=== PATIENT | female | born 1945 | race Caucasian/White ===

== ENCOUNTER 2021-05-19 09:42 | Observation (INO) | payer MEDICARE, SELFPAY ==
[2021-05-19] VITALS (8 sets, daily range): BP systolic 123–175; BP diastolic 56–93; PULSE 73–101; RESP 12–18; TEMP 36.2–36.8; O2SAT 94–100; BMI 19.8; BMI 19.3
--- NOTE | 2021-05-19 09:53 | EKG12_ITS ---
Test Reason : CP/DIZZINESS Blood Pressure : / mmHG Vent. Rate : 086 BPM Atrial Rate : 086 BPM P-R Int : 162 ms QRS Dur : 074 ms QT Int : 364 ms P-R-T Axes : 075 029 072 degrees QTc Int : 435 ms Sinus rhythm with occasional Premature ventricular complexes Otherwise normal ECG Confirmed by ML GARCIA, KELLIE ([id number]), technical writer and editor VAUGHN CARCAMO ([id number]) on 05/23/2021 7:51:26 AM Referred By: /BB Confirmed By:KELLIE BULL MD
--- NOTE | 2021-05-19 09:53 | RAD_ITS ---
STUDY: X-RAY CHEST REASON FOR EXAM: Female, 75 years old. Chest pain TECHNIQUE: Single AP portable view of the chest. COMPARISON: None. FINDINGS: EKG electrodes are seen. There is hyperinflation of the lungs consistent with chronic obstructive lung disease (COPD). Increased bronchovascular markings in both lungs suggestive of emphysematous change. Scattered calcified granulomas. There is no demonstrated pleural abnormality. Normal size heart. Normal mediastinum and adrienne. Normal visualized pulmonary arteries. There is atherosclerotic calcification of the aortic arch with tortuosity. There are diffuse degenerative changes of the visualized thoracic spine. Normal visualized ribs, clavicles, and shoulders. There is no demonstrated abnormality of the visualized soft tissue structures of the upper abdomen. RAD/Chest 1 View (Portable) IMPRESSION: Hyperinflation. Emphysematous changes. Electronically Signed: Raymond Parisi MD at 10:50 EDT , Service support ,
--- NOTE | 2021-05-19 10:01 | EX.ED.DYSGE1 ---
HPI History of Present Illness Chief Complaint: Dizziness Informant: patient Narrative Narrative: 75-year-old female presenting with dizziness and chest pain. Patient states she has been having intermittent exertional chest pain which has been ongoing for the past several days. She is scheduled for stress test on Saturday. This morning she had a near syncopal episode. She denies vertigo. Denies headache. She complains of mild shortness of breath. She is vaccinated for Covid. She denies PE/DVT risk factors. Prior similar symptoms: No Recent Illness/Hospitalization: No PFSH [facility] Medical History (Updated 05/19/21 @ 10:[address] Latonia Guidry MD) Anxiety Depression Kidney cysts Home Medications aspirin [Baby Aspirin] 81 mg PO DAILY 05/19/21 [History Last Taken Unknown] sertraline 25 mg PO DAILY 05/19/21 [History Last Taken Unknown] Allergy/AdvReac Type Severity Reaction Status Date / Time No Known Allergies Allergy Verified 05/19/21 09:44 Social History Smoking Status: Former smoker ROS ROS ED Constitutional Constitutional ED: Denies fever(s) Eyes Eyes: Denies change in vision ENT ENT ED: Denies rhinorrhea or sore throat Cardiovascular Cardiovascular: Reports chest pain; Denies palpitations Respiratory/Chest Respiratory/Chest: Reports dyspnea; Denies cough Gastrointestinal Gastrointestinal: Denies abdominal pain, diarrhea, nausea or vomiting Genitourinary Genitourinary ED: Denies dysuria Musculoskeletal Musculoskeletal: Denies myalgias Integumentary Denies rash Neurologic Neurologic: Denies headache(s) Psychiatric Psychiatric: Denies suicidal thoughts EXAM Physical Exam Const Vital Signs: 05/19/21 09:44 05/19/21 09:59 05/19/21 10:02 Temperature 97.1 F L Temperature Source Temporal Pulse Rate 83 Respiratory Rate 14 Respiratory Effort Normal Non-Labored Blood Pressure 175/68 H Blood Pressure Mean 103 Pulse Ox 100 Oxygen Delivery Method Room Air Room Air Positive well nourished and well developed General Appearance ED: well developed HEENT Reports normocephalic and head/scalp atraumatic Eyes PERRL and EOMs intact bilaterally Neck supple General: Negative for tenderness Chest Wall inspection of chest normal Resp normal respiratory effort and clear to auscultation bilaterally Cardio regular rate and regular rhythm GI non-tender and non-distended Palpation: soft; Negative for guarding or rebound tenderness present no CVA tenderness Extremity normal to inspection Neuro oriented x3 Sensorium / Orientation: alert Psych mental status grossly normal MDM MDM MDM Narrative Medical decision making narrative: Patient was given aspirin, IV fluids. CBC, chemistries unremarkable other than creatinine 1.37. Troponin is negative. Chest x-ray read by myself and radiology shows hyperinflation, no acute process. Heart score is 4. She is supposed to have a stress test on Saturday but is uncomfortable waiting until that time with her worsening symptoms. Discussed with the hospitalist for admission. Lab Data Attestation: I reviewed the patient's lab results. Labs: Laboratory Results - last 24 hr 05/19/21 05/19/21 10:00 10:00 WBC 5.6 RBC 4.65 Hgb 13.3 Hct 40.5 MCV 87.1 MCH 28.6 MCHC 32.8 RDW Std Deviation 44.9 H RDW Coeff of Susan 14.0 Plt Count 255 MPV 11.4 Immature Gran % (Auto) 0.200 Neut % (Auto) 57.9 Lymph % (Auto) 33.3 Coffee % (Auto) 6.8 Eos % (Auto) 0.9 Baso % (Auto) 0.9 Absolute Neuts (auto) 3.3 Absolute Lymphs (auto) 1.87 Nucleated RBC % 0 Sodium 138 Potassium 4.2 Chloride 104 Carbon Dioxide 28.0 Anion Gap 6 BUN 22 H Creatinine 1.37 H Estim Creat Clear Calc 31.27 Est GFR (MDRD) Af Amer 48 L Est GFR (MDRD) Non-Af 40 L BUN/Creatinine Ratio 16.1 Glucose 97 Calcium 9.1 Troponin I High Sens 10 Radiography Chest X-Ray - ED: 1 View, Read by ED Physician and Read by Radiologist Diagnostic Testing: Clinical Impression(s) from Imaging Studies Chest X-Ray 05/19/21 09:53 IMPRESSION: Hyperinflation. Emphysematous changes. Electronically Signed: Raymond Parisi MD at 10:50 EDT , Service support , EKG Initial EKG: Attestation: I personally reviewed and interpreted this EKG as follows: Interpretation: Sinus Rhythm and No Acute Injury Pattern Comments: PVCs Discharge Plan Triage Chief Complaint: Dizziness ED Provider: Latonia Guidry Dx/Rx/DC Orders Clinical Impression: Chest pain, Near syncope Prescriptions: No Action sertraline 25 mg tablet 25 mg PO DAILY RF: 0 aspirin [Baby Aspirin] 81 mg Tablet,Chewable 81 mg PO DAILY RF: 0 Primary Care Provider: Padmini Chappell Referrals: Padmini Chappell PA [Primary Care Provider] - Disposition Disposition: Acute Care Hospital [facility]
[2021-05-19 10:09] LABS: Absolute Lymphocyte Count 1.87 X10^3/uL (0.83-4.51); Absolute Neutrophil Count 3.3 X10^3/uL (2.0-7.7); Basophil# 0.05 X10^3/uL; Basophil% 0.9 % (0-1); Eosinophil# 0.05 X10^3/uL; Eosinophils% 0.9 % (0-5); Hematocrit 40.5 % (37-47); Hemoglobin 13.3 g/dL (12.0-15.0); Lymphocyte # 1.87 X10^3/ul (0.83-4.51); Lymphocyte % 33.3 % (19-41); Mean Corp Hgb Conc 32.8 g/dL (32-36); Mean Corpuscular Hgb 28.6 pg (27.0-32.0); Mean Corpuscular Volume 87.1 fL (81-99); Mean Platelet Vol. 11.4 fl (6.2-12.0); Monocyte# 0.38 X10^3/uL; Monocyte% 6.8 % (0-10); NRBC Flagged by Analyzer 0 % (0-5); Neutrophil # 3.26 X10^3/uL (2.7-7.7); Neutrophil % 57.9 % (47-70); Platelet Count 255 K/mm3 (150-450); RBC Distribution Width SD 44.9 fl (35.1-43.9); Red Blood Count 4.65 M/mm3 (4.2-5.4); White Blood Count 5.6 K/mm3 (4.4-11.0)
[2021-05-19 10:42] LABS: Anion Gap 6 (5-15); BUN 22 mg/dL (7-18); BUN/Creat Ratio 16.1 RATIO (10-20); Calcium,Total 9.1 mg/dL (8.5-10.1); Chloride 104 mmol/L (98-107); Creatinine, Serum 1.37 mg/dL (0.55-1.02); EST Glomerular Filtration Rate 40 mL/min (>60); Est Glom Filt Rate - Afr Amer 48 mL/min (>60); Estimated Creatinine Clearance 31.27 ml/min; Glucose 97 mg/dL (74-106); Potassium 4.2 mmol/L (3.5-5.1); Sodium Level 138 mmol/L (136-145); Troponin-I HS 10 pg/mL (3.0-54.0)
--- NOTE | 2021-05-19 11:11 | EKG12_ITS ---
Test Reason : CP Blood Pressure : / mmHG Vent. Rate : 096 BPM Atrial Rate : 096 BPM P-R Int : 164 ms QRS Dur : 080 ms QT Int : 380 ms P-R-T Axes : 077 038 071 degrees QTc Int : 480 ms Sinus rhythm with occasional Premature ventricular complexes Otherwise normal ECG When compared with ECG of 19-MAY-2021 09:52, MANUAL COMPARISON REQUIRED, DATA IS UNCONFIRMED Confirmed by ML GARCIA, KELLIE ([id number]), publications editor VAUGHN CARCAMO ([id number]) on 05/24/2021 9:50:03 AM Referred By: Lolita ROMERO Confirmed By:KELLIE BULL MD
[2021-05-19] MEDS: 0.9% Normal Saline 1,000 ML 1000 ML IV (11:21)
[2021-05-19] MEDS: Aspirin 81 MG TAB.CHEW 324 MG PO (11:21)
--- NOTE | 2021-05-19 12:11 | HP.PCM_ITS ---
Documented by User: DANIELLE Bell 05/19/21 12:34 HPI - General General Date of Admission: 05/19/21 Date of Service: 05/19/21 Chief Complaint: Chest pain, near syncope HPI Narrative NEVILLE ARENAS, is a 75 F who presents with complaints of chest pain and dizziness. Patient states that she has been having intermittent chest pain him scheduled for a stress test next Saturday however patient states that she had a near syncopal episode this morning which caused her concern. Patient denies vertigo, headache. Patient also reports mild shortness of breath with the chest pain. Patient states that she has been fully vaccinated for Covid [facility] Medical History Anxiety Depression Kidney cysts Home Medications aspirin [Baby Aspirin] 81 mg PO QHS 05/19/21 [History Last Taken 05/18/21] sertraline 25 mg PO DAILY 05/19/21 [History Last Taken 05/18/21] Allergy/AdvReac Type Severity Reaction Status Date / Time No Known Allergies Allergy Verified 05/19/21 09:44 Surgical History H/O elbow surgery H/O removal of cyst Social History (Updated 05/19/21 @ 12:13 by DANIELLE Bell) Smoking Status: Former smoker alcohol intake: never substance use type: does not use ROS Constitutional Constitutional: Denies anorexia, chills, fatigue, fever(s) or weakness Cardiovascular Cardiovascular: Reports chest pain and syncope; Denies edema or palpitations Respiratory/Chest Respiratory/Chest: Denies cough, shortness of breath at rest, shortness of breath with exertion or wheezing Gastrointestinal Gastrointestinal: Denies abdominal pain, constipation, diarrhea, nausea or vomiting Genitourinary Genitourinary: Denies dysuria Musculoskeletal Musculoskeletal: Denies back pain, extremity pain, joint pain or joint stiffness Integumentary Integumentary: Denies dry skin Neurologic Neurologic: Reports dizziness; Denies abnormal gait, abnormal speech, confusion, focal weakness or headache(s) Psychiatric Psychiatric: Reports anxiety; Denies depression Endocrine Endocrinology: Denies change in body appearance Hematologic/Lymphatic Hematologic/Lymphatic: Denies anemia, easy bleeding or easy bruising Vital Signs Vital Signs Vital Signs: 05/19/21 09:44 05/19/21 09:59 05/19/21 10:02 Temperature 97.1 F L Temperature Source Temporal Pulse Rate 83 Respiratory Rate 14 Respiratory Effort Normal Non-Labored Blood Pressure 175/68 H Blood Pressure Mean 103 Blood Pressure Source Blood Pressure Position Blood Pressure Location Pulse Ox 100 Oxygen Delivery Method Room Air Room Air 05/19/21 11:23 05/19/21 11:44 05/19/21 11:45 Temperature 98.2 F 97.7 F L Temperature Source Oral Oral Pulse Rate 84 101 H 83 Respiratory Rate 18 16 Respiratory Effort Blood Pressure 175/62 H 123/93 H Blood Pressure Mean 99 103 Blood Pressure Source Monitor Blood Pressure Position Semi-Fowlers Blood Pressure Location Right Arm Pulse Ox 94 100 Oxygen Delivery Method Room Air Room Air Weight Weight: 123 lb 8 oz Body Mass Index (BMI) 19.3 Physical Exam Const alert, oriented x3 and no apparent distress General Appearance: cooperative HEENT normocephalic and head/scalp atraumatic Eyes conjunctivae normal and no scleral icterus Neck full ROM and supple General: trachea midline Resp normal respiratory effort, normal air movement and clear to auscultation bilaterally Cardio regular rate, regular rhythm, S1 normal heart sound, S2 normal heart sound and p eripheral pulses 2+ throughout GI normal to inspection, nondistended, normoactive bowel sounds, soft to palpation and non-tender Extremity normal capillary refill and no clubbing, cyanosis or edema General Extremity: no tenderness to palpation of joints or extremities Skin General Skin Exam: no breakdown and turgor normal Lesions: no lesions Rashes: no rashes Neuro oriented x3, moves all extremities, no focal motor deficits and no sensory deficits noted Speech: speech normal Motor Exam: Negative for general weakness Psych thought process normal and cooperative Appearance: appropriate Mood & Affect: anxious Results Lab / Micro Data Result Diagrams: 05/19/21 10:00 05/19/21 10:00 Labs: Laboratory Results - last 24 hr 05/19/21 10:00: WBC 5.6, RBC 4.65, Hgb 13.3, Hct 40.5, MCV 87.1, MCH 28.6, MCHC 32.8, RDW Std Deviation 44.9 H, RDW Coeff of Susan 14.0, Plt Count 255, MPV 11.4, Immature Gran % (Auto) 0.200, Neut % (Auto) 57.9, Lymph % (Auto) 33.3, Grant % (Auto) 6.8, Eos % (Auto) 0.9, Baso % (Auto) 0.9, Absolute Neuts (auto) 3.3, Absolute Lymphs (auto) 1.87, Nucleated RBC % 0 05/19/21 10:00: Sodium 138, Potassium 4.2, Chloride 104, Carbon Dioxide 28.0, Anion Gap 6, BUN 22 H, Creatinine 1.37 H, Estim Creat Clear Calc 31.27, Est GFR (MDRD) Af Amer 48 L, Est GFR (MDRD) Non-Af 40 L, BUN/Creatinine Ratio 16.1, Glucose 97, Calcium 9.1, Troponin I High Sens 10 Radiology Impression Chest X-Ray 05/19/21 09:53 IMPRESSION: Hyperinflation. Emphysematous changes. Electronically Signed: Raymond Parisi MD at 10:50 EDT , Service support , Assessment & Plan Assessment/Plan (1) Chest pain: QUALIFIERS: Chest pain type: unspecified Qualified Code(s): R07.9 - Chest pain, unspecified PLAN: 1. Chest pain -Admit to PCU for continuous cardiac monitoring -Chemical stress test ordered for a.m. -Repeat EKG ordered -Trend cardiac enzymes -Continue low-dose aspirin, patient given full-strength aspirin in ER -As needed nitroglycerin ordered for chest pain -Vital signs per protocol 2. Anxiety -Patient recently started on Zoloft, will continue DVT prophylaxis-not indicated This patient was seen by Tiffanie Perdomo NP-C under the supervision of Dr. Dela Cruz. Documented by User: Dr. Julio Cesar Dela Cruz DO 05/19/21 19:38 HPI - General General Date of Admission: 05/19/21 [facility] Medical History Anxiety Depression Kidney cysts Home Medications aspirin [Baby Aspirin] 81 mg PO QHS 05/19/21 [History Last Taken 05/18/21] sertraline 25 mg PO DAILY 05/19/21 [History Last Taken 05/18/21] Allergy/AdvReac Type Severity Reaction Status Date / Time No Known Allergies Allergy Verified 05/19/21 09:44 Surgical History H/O elbow surgery H/O removal of cyst Social History (Updated 05/19/21 @ 12:13 by DANIELLE Bell) Smoking Status: Former smoker alcohol intake: never substance use type: does not use Results Lab / Micro Data Result Diagrams: 05/19/21 10:00 05/19/21 10:00 Charges/Coding Addendum Addendum: Patient was seen and examined independently of Tiffanie Spangler today, she was seen in the emergency room after having a near syncopal episode today while she was a passenger in her car today. Patient has been having episodes of chest discomfort over the last several days on exertion, she has been scheduled for an outpatient stress test this Saturday. On examination she appeared in good health and spirits, she does not appear to be in any distress. Vital signs as documented. Skin warm and dry and without overt rashes. Neck without JVD, thyroid appears normal, trachea is midline, neck is supple. Lungs clear, normal air movement was noted. Heart exam notable for regular rhythm, normal sounds and absence of murmurs, rubs or gallops. Abdomen unremarkable and without evidence of organomegaly, masses, or abdominal aortic enlargement, bowel sounds are present in all 4 quadrants, no abdominal tenderness was noted. Extremities nonedematous, no cyanosis was noted, no clubbing was noted. Neuro: Cranial nerves II through XII are grossly intact, no focal motor deficits were noted, sensation to light touch and pinprick is intact, motor exam 5/5 throughout. Psych: Patient is alert and oriented x3, she does not appear anxious or depressed, she does not appear agitated. Patient will undergo a pharmacological nuclear stress test tomorrow if her enzymes remain normal. I have reviewed Axel Spangler's history and physical including her medical assessment and plan of care and endorse it. Visit Charges OBSV E&M: 42510 Initial observation care L3
[2021-05-19 13:23] LABS: Troponin-I HS 10 pg/mL (3.0-54.0)
[2021-05-19] MEDS: Sertraline 50 MG Tablet 25 MG PO (14:13)
[2021-05-19 21:51] LABS: Troponin-I HS 11 pg/mL (3.0-54.0)
[2021-05-20] VITALS (7 sets, daily range): BP systolic 118–166; BP diastolic 50–60; PULSE 61–85; RESP 12–18; TEMP 36.1–36.7; O2SAT 97–98
[2021-05-20] MEDS: 0.9% Saline Lock 10 ML Syringe IV ×2 (04:51→13:26)
[2021-05-20] MEDS: Ondansetron 4 MG/2 ML Vial IV ×2 (04:51→13:26)
--- NOTE | 2021-05-20 05:55 | EKG12_ITS ---
Test Reason : AM Blood Pressure : / mmHG Vent. Rate : 072 BPM Atrial Rate : 072 BPM P-R Int : 192 ms QRS Dur : 076 ms QT Int : 412 ms P-R-T Axes : 079 036 080 degrees QTc Int : 451 ms Normal sinus rhythm Normal ECG When compared with ECG of 19-MAY-2021 14:18, MANUAL COMPARISON REQUIRED, DATA IS UNCONFIRMED Confirmed by ML GARCIA, KELLIE ([id number]), editorial assistant SOPHY GORMAN ([id number]) on 05/23/2021 2:17:35 PM Referred By: MARLENE Confirmed By:KELLIE BULL MD
[2021-05-20] MEDS: Aspirin 81 MG TAB.CHEW PO (06:36)
--- NOTE | 2021-05-20 07:20 | PCS.PANDOC ---
PANDEMIC DOCUMENTATION INITIATED: Date: 05/19/2021 Time: 1139
[2021-05-20] MEDS: Sertraline 50 MG Tablet 25 MG PO (10:34)
--- NOTE | 2021-05-20 11:03 | STRESSREP ---
Stress Test Report Regadenoson myocardial perfusion stress test. Indication 75-year-old patient presented to ER with symptoms of dizziness and chest pain. This symptoms has been associated with mild symptoms of shortness of breath Evidently patient was scheduled for outpatient stress test however she had episode of near syncope and was admitted to hospital and had a cardiac work-up with a series of enzymes which were negative. Stress protocol: Resting EKG demonstrates. Normal sinus rhythm. 0.4 mg of regadenoson was infused per usual protocol followed by rapid intravenous saline flush injection continuous EKG monitoring was performed. The maximum heart rate attained was 120 bpm which was 83% % of maximum predicted heart . Stress EKG showed[, no significant change from the resting EKG, with maximum heart rate of 120 bpm. Arrhythmia: Frequent episodes of premature ventricular complexes with ventricular couplets Symptoms: Patient had no symptoms of chest pain Blood pressure at rest: 168/80 mmHg blood pressure at the end of stress: 168/80 mmHg Myocardial perfusion protocol. [11.1 mCi ]of Technetium 99m Sestamibi was injected at rest. [ 0.4 mg ]of Regadenoson was infused per usual protocol peak infusion[31.9 mCi ]of Technetium 99m sestamibi was injected. Stress images were obtained stress and rest images were reconstructed and compared in the short axis vertical and horizontal long axis. Gated images were also obtained Perfusion SPECT analysis: Review of the images demonstrate normal uptake of sestamibi at rest, post stress images demonstrate a small area of reduced uptake uptake of sestamibi in the lateral myocardium. This is consistent with small area of lateral myocardial ischemia Gated SPECT analysis: The gated ejection fraction is 61%. Normal left ventricular wall motion and normal LV systolic function Conclusion: Abnormal Lexiscan sestamibi myocardial perfusion study for small lateral reversible myocardial ischemia Normal LV wall motion and normal LV systolic function Recommendations; Consider to evaluate further with left heart catheterization Guillermo Jaramillo MD,FACC,[facility]
--- NOTE | 2021-05-20 11:26 | PCM.DC ---
Discharge Instructions Diet Discharge Diet: Low fat / Low cholesterol Activity Discharge Activity: Return to Normal Activity Dressing / Incision Call your doctor if you observe: Shortness of breath, Dizziness, Chest pain and Increased palpitations (irregular heartbeat) Follow Up Care Please Follow Up With: Daniel Horner MD When: 2 weeks Test Results: Test results from this visit will be discussed in further detail at your follow-up appointment, if applicable. Discharge Plan Admission Admit Date/Time: 05/19/21 10:56 Primary Reason for Your Visit: Chest pain Attending Provider: Julio Cesar Dela Cruz Primary Care Provider: Padmini Chappell Discharge Orders/Prescriptions Prescriptions: New sertraline 50 mg Tablet 50 mg PO DAILY 30 Days Qty: 30 RF: 0 buspirone 10 mg tablet 10 mg PO TID PRN (Reason: anxiety) Qty: 30 RF: 0 ondansetron 4 mg tablet,disintegrating 4 mg PO Q8H PRN (Reason: nausea and vomiting) Qty: 6 RF: 0 carvedilol [Coreg] 3.125 mg tablet 3.125 mg PO BID 30 Days Qty: 60 RF: 0 Continued aspirin 81 mg Tablet,Chewable 81 mg PO QHS RF: 0 Discontinued sertraline 25 mg tablet 25 mg PO DAILY RF: 0 Referrals / Follow Up: Padmini Chappell PA [Primary Care Provider] - Daniel Horner MD [STAFF PHYSICIAN] - Within 2 Weeks Disposition Disposition (needs filled in before D/C Order can be placed): Home, Self Care
--- NOTE | 2021-05-20 11:36 | DS.PCM_ITS ---
Documented by User: DANIELLE Bell 05/20/21 11:43 Providers Date of Admission: 05/19/21 Primary Care Physician: BERLIN Kunz Reason For Visit: CHEST PAIN Diagnosis Discharge Diagnosis (1) Chest pain: Status: Acute Code(s): R07.9 - Chest pain, unspecified Qualifiers: Chest pain type: unspecified Qualified Code(s): R07.9 - Chest pain, unspecified Medications at Discharge Home Medications aspirin 81 mg PO QHS 05/19/21 buspirone 10 mg PO TID PRN #30 tab 05/20/21 carvedilol [Coreg] 3.125 mg PO BID 30 Days #60 tab 05/20/21 ondansetron 4 mg PO Q8H PRN #6 tab 05/20/21 sertraline 50 mg PO DAILY 30 Days #30 tab 05/20/21 Hospital Course Operations None Procedures None, EKG and Stress test Summary of Care Provided Minutes Spent on Discharge: 35 Hospital Course: Patient is a 75-year-old female who presented yesterday with chest pain and near syncope. Patient states that she was recently diagnosed with anxiety and started on Zoloft as well. Patient underwent stress test this morning which showed a small reversible area of ischemia. Case was discussed with Dr. Jaramillo and Dr. Dela Cruz. Dr. Partida states patient is okay to go home and follow-up outpatient due to otherwise normal assessment and vital signs as well as patient resolution of symptoms. Patient will follow up with cardiology within 2 weeks and schedule a heart catheterization outpatient. Physical Exam Const alert, oriented x3 and no apparent distress General Appearance: cooperative HEENT normocephalic and head/scalp atraumatic Eyes conjunctivae normal and no scleral icterus Neck full ROM and supple General: trachea midline Resp normal respiratory effort, normal air movement and clear to auscultation bilat erally Cardio regular rate, regular rhythm, S1 normal heart sound, S2 normal heart sound and peripheral pulses 2+ throughout GI normal to inspection, nondistended, normoactive bowel sounds, soft to palpation and non-tender Extremity normal capillary refill and no clubbing, cyanosis or edema General Extremity: no tenderness to palpation of joints or extremities Skin skin turgor normal General Skin Exam: no breakdown Lesions: no lesions Rashes: no rashes Neuro oriented x3, moves all extremities, no focal motor deficits, no sensory deficits noted and gait normal Motor Exam: general weakness Psych affect normal Appearance: appropriate Weight / BMI Weight Weight: 123 lb 8 oz Body Mass Index (BMI) 19.3 ABG / Lab / Microbiology Data Result Diagrams: 05/19/21 10:00 05/19/21 10:00 Laboratory: Laboratory Results - last 24 hr 05/19/21 12:53: Troponin I High Sens 10 05/19/21 21:24: Troponin I High Sens 11 D/C Instructions Discharge Diet: Low fat / Low cholesterol Call your doctor if you observe: Shortness of breath, Dizziness, Chest pain and Increased palpitations (irregular heartbeat) Please Follow Up With: Daniel Horner MD When: 2 weeks Meaningful Use Info Meaningful Use Diagnoses (Choose all that apply): None applicable Discharge Plan Admission Admit Date/Time: 05/19/21 10:56 Primary Reason for Your Visit: Chest pain Attending Provider: Julio Cesar Dela Cruz Primary Care Provider: Padmini Chappell Discharge Orders/Prescriptions Prescriptions: New sertraline 50 mg Tablet 50 mg PO DAILY 30 Days Qty: 30 RF: 0 buspirone 10 mg tablet 10 mg PO TID PRN (Reason: anxiety) Qty: 30 RF: 0 ondansetron 4 mg tablet,disintegrating 4 mg PO Q8H PRN (Reason: nausea and vomiting) Qty: 6 RF: 0 carvedilol [Coreg] 3.125 mg tablet 3.125 mg PO BID 30 Days Qty: 60 RF: 0 Continued aspirin 81 mg Tablet,Chewable 81 mg PO QHS RF: 0 Discontinued sertraline 25 mg tablet 25 mg PO DAILY RF: 0 Referrals / Follow Up: Daniel Horner MD [STAFF PHYSICIAN] - Within 2 Weeks Padmini Chappell PA [Primary Care Provider] - Disposition Disposition (needs filled in before D/C Order can be placed): Home, Self Care Documented by User: Dr. Julio Cesar Dela Cruz DO 05/20/21 18:52 Providers Date of Admission: 05/19/21 Reason For Visit: CHEST PAIN Medications at Discharge Home Medications aspirin 81 mg PO QHS 05/19/21 buspirone 10 mg PO TID PRN #30 tab 05/20/21 carvedilol [Coreg] 3.125 mg PO BID 30 Days #60 tab 05/20/21 ondansetron 4 mg PO Q8H PRN #6 tab 05/20/21 sertraline 50 mg PO DAILY 30 Days #30 tab 05/20/21 ABG / Lab / Microbiology Data Result Diagrams: 05/19/21 10:00 05/19/21 10:00 Discharge Plan Admission Admit Date/Time: 05/19/21 10:56 Primary Reason for Your Visit: Chest pain Attending Provider: Julio Cesar Dela Cruz Primary Care Provider: Padmini Chappell Discharge Orders/Prescriptions Prescriptions: New sertraline 50 mg Tablet 50 mg PO DAILY 30 Days Qty: 30 RF: 0 buspirone 10 mg tablet 10 mg PO TID PRN (Reason: anxiety) Qty: 30 RF: 0 ondansetron 4 mg tablet,disintegrating 4 mg PO Q8H PRN (Reason: nausea and vomiting) Qty: 6 RF: 0 carvedilol [Coreg] 3.125 mg tablet 3.125 mg PO BID 30 Days Qty: 60 RF: 0 Continued aspirin 81 mg Tablet,Chewable 81 mg PO QHS RF: 0 Discontinued sertraline 25 mg tablet 25 mg PO DAILY RF: 0 Referrals / Follow Up: Daniel Horner MD [STAFF PHYSICIAN] - Within 2 Weeks Padmini Chappell PA [Primary Care Provider] - Disposition Disposition (needs filled in before D/C Order can be placed): Home, Self Care Charges/Coding Addendum Addendum: Patient was seen and examined today independently of Tiffanie Spangler, she had a stress test today which resulted as positive for small area of reversible ischemia. Patient and the patient's are aware of the results. Cardiology states that the patient could be discharged today and follo w-up as an outpatient. On examination she appeared in good health and spirits, she does not appear to be in any distress. Vital signs as documented. Skin warm and dry and without overt rashes. Neck without JVD, thyroid appears normal, trachea is midline, neck is supple. Lungs clear, normal air movement was noted. Heart exam notable for regular rhythm, normal sounds and absence of murmurs, rubs or gallops. Abdomen unremarkable and without evidence of organomegaly, masses, or abdominal aortic enlargement, bowel sounds are present in all 4 quadrants, no abdominal tenderness was noted. Extremities nonedematous, no cyanosis was noted, no clubbing was noted. Neuro: Cranial nerves II through XII are grossly intact, no focal motor deficits were noted, sensation to light touch and pinprick is int act, motor exam 5/5 throughout. Psych: Patient is alert and oriented x3, she does not appear anxious or depressed, she does not appear agitated. Patient will be discharged home, she will be placed on a beta-rei and remain on aspirin at this time. I have reviewed Axel Aníbal's discharge summary including her medical assessment and plan of care and endorse it. Visit Charges OBSV E&M: 57072 Observation care discharge
--- NOTE | 2021-05-20 12:39 | CASEMGMT ---
ARIK CM in to discuss JARRETT form with patient. RN CM explained JARRETT form, patient voiced understanding. Pt signed form and filed in chart. Pt provided with a copy of signed JARRETT form. Patient had no further questions or concerns at this time.
== END 2021-05-20 11:32 | disposition home or self-care (01) ==
LOC: ED 10:58 → PCU 11:21
PROVIDERS: Admitting Provider Internal Medicine; Emergency Provider Emergency Medicine; Visit Provider Internal Medicine
DX: R07.89 Other chest pain (principal); R42 Dizziness and giddiness; R55 Syncope and collapse; R06.02 Shortness of breath; F32.A Depression, unspecified; F41.9 Anxiety disorder, unspecified; I49.3 Ventricular premature depolarization; Z79.82 Long term (current) use of aspirin; Z79.899 Other long term (current) drug therapy; Z87.891 Personal history of nicotine dependence
CPT/HCPCS: 36415; 71045; 78452; 80048; 84484; 85025; 93005; 93017; 96374; 96376; 99218; 99285; A9500; J7030; A4216; G0378; J2405; J2785

== ENCOUNTER 2021-06-13 08:44 | Day surgery (SDC) | payer MEDICARE, SELFPAY ==
[2021-06-12 07:50] VITALS: BMI 19.4
--- NOTE | 2021-06-12 18:38 | PCM.HP.BLA ---
History and Physical Date of Admission: 06/13/21 [facility] [address] [place] [address] [phone] OFFICE VISITDate of Service: 06/06/21 MR#:[id number]: NEVILLE ARENAS ep #:[id number]:[id number] Provider:Pool Macias/Sex: 75/F Location:[facility]:Signed HPI HPI History of Present Illness Surgical H&P: Yes Details: This is a 75-year-old white female who presents today for outpatient cardiovascular consultation based upon symptoms concerning for angina pectoris and an abnormal stress nuclear imaging study. She states for at least 6 weeks now she has been having symptoms which she describes as chest burning which radiates to her neck, shortness of breath/dyspnea, nausea, possible diaphoresis, and feeling lightheaded. She states the symptoms wax and wane during the daytime but can also wake her up out of sleep at night. She has not had classic orthopnea or PND or peripheral pitting edema. There is been no near syncope or syncope. She was evaluated by a binding nicker in [place], [place] who based on his note suspected esophageal spasm but also recommended a stress myocardial perfusion study. However, prior to that study being performed, she was traveling with her locally. Based on ongoing symptoms they presented to [facility] for further evaluation. She underwent evaluation with cardiac enzymes which were negative. She had a stress nuclear imaging study performed with the results as noted below. She was recommended for medical therapy and was deemed stable for outpatient evaluation including diagnostic cardiac catheterization. She did have a transthoracic echocardiogram performed in [place], [place] on 04-07-2021. Per the report it stated her left ventricle was normal with an LVEF of 50 to 55%, the left atrium was mildly enlarged, there was mild mitral annular calcification, the mitral valve leaflets were mildly thickened with mild prolapse of the anterior leaflet and redundant mitral valve cords. There was moderate MR. There was mild to moderate TR. There was moderate AI. The estimated RV systolic pressure was 43 mmHg. There was a comment was compared to a study from 2012 which she does not recall at this time that stated her MR and AI had progressed. At [facility] her ECG demonstrated she had sinus rhythm. It was repeated today to observe for any obvious acute changes. It appeared she remained in sinus rhythm with no acute ECG changes with an occasional PVC. Intake Vital Signs 06/06/21 15:05 Height 5 ft 7 in Weight: 124 lb 1 oz BMI 19.4 BP 170/70 H Blood Pressure Location Lt brachial Position Sitting Respiration 18 Pulse 76 Pulse Source Auscultation Intake Visit Reasons: PFM PT, NEEDS CATH ([facility] NO CONSULT) House Detective Required: No Accompanied by: Allergies No Known Allergies Allergy (Verified 06/06/21 15:05) Medications aspirin 81 mg PO QHS 05/19/21 [History Confirmed 06/06/21] buspirone 10 mg PO TID PRN #30 tab 05/20/21 [Rx Confirmed 06/06/21] carvedilol [Coreg] 3.125 mg PO BID 30 Days #60 tab 05/20/21 [Rx Confirmed 06/06/21] sertraline 50 mg PO DAILY 30 Days #30 tab 05/20/21 [Rx Confirmed 06/06/21] atorvastatin 20 mg tablet 20 mg PO QHS 06/06/21 [History Confirmed 06/06/21] clopidogrel 75 mg tablet 75 mg PO DAILY #30 tab 06/06/21 [Rx Confirmed 06/06/21] [facility] Medical History (Updated 06/06/21 @ 16:[address] Daniel Horner MD) Anxiety Aortic valve insufficiency Bruit of left carotid artery Cardiac murmur CKD (chronic kidney disease) Depression Essential hypertension Kidney cysts Mixed hyperlipidemia Non-rheumatic mitral regurgitation Non-rheumatic tricuspid valve insufficiency Nonrheumatic mitral (valve) prolapse Pulmonary hypertension Surgical History H/O elbow surgery H/O removal of cyst Family History Mother Heart disease Social History Smoking Status: Former smoker alcohol intake: never substance use type: does not use caffeine: Yes Type: coffee Number of servings: 2 and tea Number of servings: 1 ROS Const Const: Positive for weakness (generalized); Negative for fatigue, frequent falls, excessive sweating, weight gain or weight loss Eyes Eyes: Negative for transient loss of vision, blurry vision or change in vision ENT ENT: Negative for dizziness or balance problems Cardio Chest Pain: No Character: tightness Onset: at rest Location: mid sternal (radiates up into throat) Duration: hours Relieving: other (baking soda) Palpitations: Yes (daily) feels like its: fast Edema: None Muscle aches with walking: None Resp Respiratory: Positive for SOB at rest (occasional wakes at night feeling SOB; breathing hard); Negative for SOB with activity GI GI: Negative vomiting or vomiting blood/hematemesis : Negative for hematuria Musc Musc: Negative for muscle aches/ myalgia, muscle weakness, joint pain or balance problems Skin Skin: Negative non-healing lesions or rash Neuro Neuro: Positive for lightheadedness (x1 episode while riding in the car; x1 waking in the am ), near syncope and weakness (generalized); Negative for dizziness, orthostatic symptoms, frequent falls or blurry vision Skyler Hematologic/Lymphatic: Negative for easy bleeding Endo Endo: Negative for fatigue or excessive sweating Psych Psych: Negative for anxiety or depression Allergy Allergy/Immunology: Negative for hives and Negative for rash Cardiology Exam Const Appearance: cooperative, healthy appearing, comfortable, no acute distress, well developed and well groomed Nutritional Appearance: thin Orientation: alert, awake and oriented x3 Head Head: normal to inspection, normocephalic and atraumatic Ears: hearing grossly normal bilaterally Nose: external nose normal Face and Sinus: face symmetric Eyes Eyelids: eyelids normal Conjunctivae: conjunctivae normal Pupils: PERRL EOM: EOM intact bilaterally Neck Neck: normal visual inspection and full ROM Carotids: normal carotid upstroke carotid endarterectomy: Left Chest Chest inspection: normal inspection of the chest, symmetric chest movement and normal respiratory effort Auscultation: Bilateral: Clear to Auscultation Cardio Palpation: normal PMI Rate: regular rate Rhythm: regular rhythm Heart sounds: S1 normal and S2 normal Murmur: Grade 2/6, soft, holosystolic and apex GI GI: normal to inspection, soft and bowel sounds present Neuro General: patient alert, patient awake, patient oriented x3 and moves all extremities Skin Skin: no rashes or lesions noted Extremities Pulses: Normal: Right Radial Pulse and Left Radial Pulse Lower Extremity Edema: None: Bilateral Psych Psychological: normal affect Supplemental Info Supplemental Information Stress Test Report Regadenoson myocardial perfusion stress test. Indication 75-year-old patient presented to ER with symptoms of dizziness and chest pain. This symptoms has been associated with mild symptoms of shortness of breath Evidently patient was scheduled for outpatient stress test however she had episode of near syncope and was admitted to hospital and had a cardiac work-up with a series of enzymes which were negative. Stress protocol: Resting EKG demonstrates. Normal sinus rhythm. 0.4 mg of regadenoson was infused per usual protocol followed by rapid intravenous saline flush injection continuous EKG monitoring was performed. The maximum heart rate attained was 120 bpm which was 83% % of maximum predicted heart . Stress EKG showed[, no significant change from the resting EKG, with maximum heart rate of 120 bpm. Arrhythmia: Frequent episodes of premature ventricular complexes with ventricular couplets Symptoms: Patient had no symptoms of chest pain Blood pressure at rest: 168/80 mmHg blood pressure at the end of stress: 168/80 mmHg Myocardial perfusion protocol. [11.1 mCi ]of Technetium 99m Sestamibi was injected at rest. [ 0.4 mg ]of Regadenoson was infused per usual protocol peak infusion[31.9 mCi ]of Technetium 99m sestamibi was injected. Stress images were obtained stress and rest images were reconstructed and compared in the short axis vertical and horizontal long axis. Gated images were also obtained Perfusion SPECT analysis: Review of the images demonstrate normal uptake of sestamibi at rest, post stress images demonstrate a small area of reduced uptake uptake of sestamibi in the lateral myocardium. This is consistent with small area of lateral myocardial ischemia Gated SPECT analysis: The gated ejection fraction is 61%. Normal left ventricular wall motion and normal LV systolic function Conclusion: Abnormal Lexiscan sestamibi myocardial perfusion study for small lateral reversible myocardial ischemia Normal LV wall motion and normal LV systolic function Recommendations; Consider to evaluate further with left heart catheterization Guillermo Jaramillo MD,FACC,[facility] Labs: No Data to Display Diagnostics: Electrocardiogram Stress Test NM Stress Test Chest X-Ray Pulmonary: No Data to Display Assessment and Plan Assessment and Plan (1) Abnormal stress test: Status: Acute Orders: Orders: 12 Lead EKG performed by [facility] Today Plan - Dr. Daniel Horner MD: She does have an abnormal stress nuclear imaging study raising concerns of stress-induced myocardial ischemia. This, with her symptoms, her cardiovascular risks, etc., it is felt reasonable that she proceed with diagnostic cardiac catheterization. The procedure and risk were discussed with her and she was agreeable to this approach. In the interim she will initiate additional antiplatelet therapy with clopidogrel/Plavix. (2) Chest pain: Status: Acute Qualifiers: Chest pain type: unspecified Qualified Code(s): R07.9 - Chest pain, unspecified Orders: Orders: 12 Lead EKG performed by [facility] Today Left Heart Cath/COR/LV Percut Today Plan - Dr. Daniel Horner MD: Her chest discomfort and associated symptoms are concerning for underlying CAD with myocardial ischemia and angina pectoris. If her cardiac catheterization is remarkable then perhaps she does have noncardiac symptoms which may be gastrointestinal related. (3) Nonrheumatic mitral (valve) prolapse: Status: Acute Plan - Dr. Daniel Horner MD: She apparently has findings of mitral valve prolapse with MR. She does not appear to recall this at this time. This is something to follow over time based upon her history, her exam, and her echocardiogram. (4) Non-rheumatic mitral regurgitation: Status: Acute Plan - Dr. Daniel Horner MD: Again she will continue evaluation care and follow-up as noted above. (5) Non-rheumatic tricuspid valve insufficiency: Status: Acute Plan - Dr. Daniel Horner MD: She also has report of tricuspid valve regurgitation. At the moment she appears to be without symptoms of acute right-sided involvement. She will continue follow-up as noted. (6) Aortic valve insufficiency: Status: Acute Qualifiers: Cardiac valve disease etiology: nonrheumatic Qualified Code(s): I35.1 - Nonrheumatic aortic (valve) insufficiency Plan - Dr. Daniel Horner MD: She also has report of aortic valve insufficiency. This should be followed over time with noninvasive studies. (7) Mixed hyperlipidemia: Status: Acute Orders: Orders: 12 Lead EKG performed by [facility]ata - Dr. Daniel Horner MD: She should continue risk factor evaluation care as deemed appropriate. (8) Essential hypertension: Status: Acute Orders: Orders: 12 Lead EKG performed by [facility] Mata - Dr. Daniel Horner MD: She brings with her her home blood pressures which overall appear to be under reasonably good control. She was asked to continue to monitor her blood pressures at home for any significant changes that would warrant further adjustment of medications. (9) Bruit of left carotid artery: Status: Acute Orders: Orders: Carotid Duplex Ultrasound Today Plan - Dr. Daniel Horner MD: On examination she does have a left carotid artery bruit. She will be asked to have a carotid artery duplex study performed to evaluate for carotid artery stenosis. Plan Details Other Medications: New: clopidogrel (Plavix) Take 4 tablets (300 mg) on Day 1 then 1 tablet a day (75 mg) starting on Day 2 75 mg PO DAILY 30 tabs 1RF Additional Comments: Thank you for allowing me to participate in the care of your patient. Please don't hesitate to call if any issues arise. This note was generated using a voice recognition system and there may be incorrect words, spelling or punctuation that were not noted when reviewing the office note prior to saving. Follow Up: 3 Months (PFM) COVID (Procedure Consent) Procedure Criteria Procedure Criteria: Yes Elective The surgeon/proceduralist and patient have discussed in detail the risk of exposure to and/or potential harm posed by the COVID-19 virus with having a surgery/procedure at this time versus the risk of delaying the surgery/procedure. It is not possible to know either the risk of delaying the surgery or procedure or chance of getting an infection with perfect accuracy, but a joint decision was made between the patient and the surgeon/proceduralist to proceed at this time with the scheduled surgery/procedure as indicated on the consent form. Coding Level of Care Code Off vis,new,level 5 Diagnoses Abnormal stress test R94.39 Chest pain R07.9 Chest pain type: unspecified Nonrheumatic mitral (valve) prolapse I34.1 Non-rheumatic mitral regurgitation I34.0 Non-rheumatic tricuspid valve insufficiency I36.1 Aortic valve insufficiency I35.1 Cardiac valve disease etiology: nonrheumatic Mixed hyperlipidemia E78.2 Essential hypertension I10 Bruit of left carotid artery R09.89 Coding Level of Care Code Off vis,new,level 5 Diagnoses Abnormal stress test R94.39 Chest pain R07.9 Chest pain type: unspecified Nonrheumatic mitral (valve) prolapse I34.1 Non-rheumatic mitral regurgitation I34.0 Non-rheumatic tricuspid valve insufficiency I36.1 Aortic valve insufficiency I35.1 Cardiac valve disease etiology: nonrheumatic Mixed hyperlipidemia E78.2 Essential hypertension I10 Bruit of left carotid artery R09.89 06/06/21 1634<Electronically signed by Daniel Horner MD>Date Daniel Horner MD Cosigner Signature:Date (if applicable) CC: BERLIN Chappell ~ Assessment & Plan Addt'l Comments I have re-examined the patient. There are no clinical changes since date of exam
--- NOTE | 2021-06-13 11:36 | CASEMGMT ---
According to the [facility] website, the following are in-network tertiary facilities: [facility], [facility], [facility], [facility], [facility], [facility], [facility], [facility], and . [facility] ELISE CM
--- NOTE | 2021-06-13 11:46 | PCI.CARDCATH ---
PCI Cardiac Cath Report PCI Report: Procedure form; 1. Intravascular ultrasound/IVUS of the left main coronary artery. 2. Selective right common femoral artery angiography with placement of Mynx to close the right femoral artery arteriotomy site. Preprocedure diagnosis; 75-year-old patient, has symptoms of angina for the last 6 weeks described as burning sensation in the chest with radiation to the back This has been associated with symptoms shortness of breath dyspnea nausea She has evaluation by nuclear stress test which is abnormal with preserved LV systolic function ejection fraction 61 She has a small area of lateral reversible myocardial ischemia Patient known to have history of essential hypertension Mixed hyperlipidemia Also has nonrheumatic mild mitral valve prolapse with mitral regurgitation.. Based on her clinical presentation and abnormal nuclear stress test she underwent cardiac catheterization today by her primary louver mortiser operator Dr. Horner Angiographic views were studied patient had a calcified left main coronary artery. With intermediate lesion. Very large left anterior descending artery normal angiographically and a dominant left circumflex which is normal. RCA small nondominant with mid coronary atherosclerosis. Consent; Risk and benefits of the procedure explained detail to the patient she elected to proceed informed consent obtained. Access; Patient had severe spasm of the right radial artery a multiple medication with nitroglycerin and verapamil still was unable to proceed with the guide catheter therefore we elected to proceed with right common femoral artery angiography under fluoroscopic guidance. Interventional equipment used; 1. 6 Armenian JL 3.5 guide 2. 0.014 run-through extra floppy 180 cm guidewire 3. IC 08?IVUS Selective angiographic view of the left main coronary artery obtained in SAFIA caudal, spider and straight AP view. Angiographically the lesion appears intermediate in the midportion of the left main coronary artery calcified Measurement of intravascular ultrasound/IVUS revealed MLA for LM?: Artery 14.2-15.6 mm? Recommendation; We will send the angiographic views and the IVUS findings to cardiovascular surgeons for follow-up. Patient will continue to monitor and follow-up by primary louver mortiser operator Dr. Horner for continuation of cardiac care plan Guillermo Jaramillo MD,[facility]
--- NOTE | 2021-06-13 12:20 | CL.D_ITS ---
Patient Name: NEVILLE ARENAS Study Date: 06/13/2021 Performing: Daniel Horner MD Ht: 66.92 inches 170 cm : 1945 Wt: 123.46 lbs 56 kg Age: 75 Gender: female BSA: 1.65 PROCEDURE(S) PERFORMED [id number], CORONARY OR GRAFT, INITIAL VESSEL CLINICAL PROFILE AND INDICATIONS Indications: Worsening Angina, Suspected CAD Heart Failure: None Stress/Imaging Date: 05/31/2021tress Test with SPECT MPI: Positive Intermediate Risk Angina Classification Anginal Classification w/in 2 Weeks: CCS IV CAD Presentations: Unstable angina. 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 Jaramillo of Interventional Cardiology DESCRIPTION OF PROCEDURE The patient arrived to the procedure lab. The risks and benefits of the procedure as well as a full d escription of our services here and current unavailability of surgical backup were fully explained to the patient and/or their significant other prior to the catheterization. The Timeout was completed, verifying the correct patient and procedure. The patient's procedural site was prepped and draped in the usual fashion. Local anesthetic was given subcutaneously to right radial region with Lidocaine 2% . Local anesthetic was given subcutaneously to right groin region with Lidocaine 2%. Using a modified Seldinger technique, arterial access was obtained via the right radial artery, a 6Fr sheath was inse rted., arterial access was obtained via the right femoral artery, a 6Fr sheath was inserted. Left Co ronary Artery selective angiography was performed in multiple views using a 5 Fr. 4.0 Esmond catheter. Right Coronary Artery selective angiography was then performed in multiple views using a 5 Fr. 4.0 Esmond catheter.Contrast was injected through the sheath and the Right Iliac and Femoral art katelyn were assessed for possible closure device.The arterial femoral sheath was pulled and a Mynx closu re device was deployed for hemostasis. The arterial Radial sheath was pulled and a TR Band was applie d for hemostasis CORONARY ANGIOGRAPHY DOMINANCE: Left Dominant LEFT HEART ASSESSMENT Left Ventricular Ejection Fraction: Not assessed LEFT MAIN: Severe calcification, eccentric: 75 % Stenosis LEFT ANTERIOR DESCENDING ARTERY: Angiographically normal CIRCUMFLEX ARTERY: Angiographically normal RIGHT CORONARY ARTERY: small; nondominant MID RCA: smooth: 75 % Stenosis COMPLICATIONS No Complications PROCEDURE MEDICATIONS Versed mg IV Fentanyl mcg IV Versed 1 mg IV Fentanyl 50 mcg IV Oxygen: L/min via nasal cannula Atropine 1mg/10ml 0.5 amp @ 06/13/2021 12:00:28 Heparin given IA 06/13/2021 10:21:31 Heparin 6000 unit(s) IV 06/13/2021 10:58:45 Nitro 200 mcg IC 06/13/2021 10:59:40 Verapamil 2.5mg, Ntg 100mcgs, 3000 units of Heparin given IA 06/13/2021 10:21:31 IV Bolus: .9 NaCl 500ml total 06/13/2021 12:02:37 IV Fluids: .9 NaCl IV started @ 75 ml/hr 06/13/2021 12:14:48 SUMMARY OF HEMODYNAMIC DATA Time AIR REST ECG 09:06:48 Art 145/49 (82) 10:14:33 AO 123/53 (82) SA 10:24:09 AO 145/44 (82) 11:10:36 RM AIR REST 11:44:08 Signed By Daniel Horner MD On 06/13/2021 12:19:37 Daniel Horner MD
== END 2021-06-13 16:26 | disposition home or self-care (01) ==
PROVIDERS: Visit Provider Internal Medicine Cardiovascular Disease
DX: I25.10 Atherosclerotic heart disease of native coronary artery without angina pectoris (principal); R07.9 Chest pain, unspecified; R94.39 Abnormal result of other cardiovascular function study; I08.3 Combined rheumatic disorders of mitral, aortic and tricuspid valves; E78.2 Mixed hyperlipidemia; I10 Essential (primary) hypertension; R09.89 Other specified symptoms and signs involving the circulatory and respiratory systems; Z79.02 Long term (current) use of antithrombotics/antiplatelets; Z79.82 Long term (current) use of aspirin; Z87.891 Personal history of nicotine dependence
CPT/HCPCS: 92978; 93454; 99152; 99153; C1760; J7040; Q9967; C1753; C1769; C1894; J2405

== ENCOUNTER → 2021-07-04 09:42 | Outpatient (CLI) | payer MEDICARE, SELFPAY ==
--- NOTE | 2021-07-04 09:48 | CDU_ITS ---
Reason For Study: BRUIT Rt. Velocities/BP Lt. Velocities/BP Prox CCA 69.9/11.2 cm/sec. Prox CCA 107.2/12.9 cm/sec. Mid CCA 77.7/15.1 cm/sec. Mid CCA 124.8/26.1 cm/sec. Dist CCA 96.0/16.4 cm/sec. Dist CCA 127.0/10.7 cm/sec. Prox ICA 74.8/7.2 cm/sec. Prox ICA 140.1/17.3 cm/sec. Mid ICA 128.9/30.3 cm/sec. Mid ICA 140.1/34.9 cm/sec. Dist ICA 158.7/27.0 cm/sec. Dist ICA 166.5/39.3 cm/sec. Rt. ICA/CCA = 158.7/96.0=1.7. Lt. ICA/CCA = 166.5/127.0=1.3. Prox ECA 118.0/12.1 cm/sec. Prox ECA 87.5/0.0 cm/sec. Rt. Vert. 100.7/17.3 cm/sec. Lt. Vert. 46.4/11.2 cm/sec. Right Extracranial There is heterogeneous, smooth atherosclerotic plaque noted in the right common carotid artery. There is heterogeneous, irregular atherosclerotic plaque noted in the right internal carotid artery. There is heterogeneous, irregular atherosclerotic plaque noted in the right external carotid artery. Antegrade flow is noted in the right vertebral artery. There is heterogeneous, irregular atherosclerotic plaque noted in the right bulb. Left Extracranial There is heterogeneous, irregular atherosclerotic plaque noted in the left common carotid artery. There is heterogeneous, smooth atherosclerotic plaque noted in the left internal carotid artery. There is heterogeneous, smooth atherosclerotic plaque noted in the left external carotid artery. Antegrade flow is noted in the left vertebral artery. There is heterogeneous, irregular atherosclerotic plaque noted in the left bulb. VL/Carotid Duplex Ultrasound Interpretation Summary Moderate (50-69%) stenosis right extracranial internal carotid. Moderate (50-69 %) stenosis left extracranial internal carotid. Flow within the vertebral arteries is antegrade bilaterally. Ordering Physician: Daniel Horner Referring Physician: Padmini Chappell Performed By: Tri Rivas, RAHEL, RVT
== END ==
PROVIDERS: Referring Provider Internal Medicine Cardiovascular Disease; Visit Provider Internal Medicine Cardiovascular Disease
DX: R09.89 Other specified symptoms and signs involving the circulatory and respiratory systems (principal)
CPT/HCPCS: 93880

== ENCOUNTER 2021-09-20 10:49 | Outpatient (CLI) | payer MEDICARE, SELFPAY ==
[2021-09-20 13:14] LABS: AST(SGOT) 20 U/L (15-37); Alanine Aminotransfer ALT/SGPT 19 U/L (13-56); Albumin, Serum 4.1 g/dL (3.2-5.0); Alkaline Phosphatase 60 U/L (45-117); Bilirubin, Direct 0.11 mg/dL (0.00-0.30); Cholesterol 170 mg/dL (200); Globulin 3.3 g/dL (2.2-4.2); High Density Lipoprotein 69 mg/dL; Protein, Total 7.4 g/dL (6.4-8.2); Triglycerides 75 mg/dL; Very Low Density Lipoprotein 15 mg/dL (5-40)
== END 2021-09-20 23:59 | disposition home or self-care (01) ==
LOC: LAB 10:50
PROVIDERS: Referring Provider Physician Assistant Medical; Visit Provider Physician Assistant Medical
DX: I25.10 Atherosclerotic heart disease of native coronary artery without angina pectoris (principal); I35.1 Nonrheumatic aortic (valve) insufficiency; I36.1 Nonrheumatic tricuspid (valve) insufficiency; I34.1 Nonrheumatic mitral (valve) prolapse; I10 Essential (primary) hypertension; E78.2 Mixed hyperlipidemia
CPT/HCPCS: 36415; 80061; 80076